=== PATIENT | male | born 2000 | race Caucasian/White ===

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

== ENCOUNTER 2019-09-27 10:50 | Emergency (ER) | payer MEDICAID ==
[~2019-09-27] VITALS: Ht 170.2 cm; Wt 65.9 kg
[~2019-09-27 10:50] MED LIST: IBUPROFEN800 MG PO
[2019-09-27 11:23] VITALS: BP 116/69; Ht 170.2 cm; Wt 65.9 kg
[2019-09-27] MEDS ORDERED: KEFLEX500 MG PO (11:41)
[2019-09-27] MEDS ORDERED: TESSALON PERLE100 MG PO (11:41)
== END 2019-09-27 16:09 | disposition home or self-care (01) ==
LOC: D.ER 10:50
DX: R05 Cough (principal); J02.9 Acute pharyngitis, unspecified